=== PATIENT | male | born 1975 | race Hispanic/Latino ===

== ENCOUNTER 2017-09-06 21:43 | Emergency (ER) | payer SELFPAY ==
[2017-09-06 22:39] LABS: RAPID GROUP A STREP NEGATIVE (NEGATIVE)
[2017-09-06] MEDS ORDERED: DiphenhydrAMINE HCL 50 MG/ML VIAL ONE (22:41)
[2017-09-06] MEDS ORDERED: ONDANSETRON HCL 4 MG/2 ML VIAL ONE (22:42)
[2017-09-06] MEDS ORDERED: KETOROLAC TROMETHAMINE 30MG/ML ONE (22:42)
[2017-09-06] MEDS ORDERED: SODIUM CHLORIDE 0.9% 1000ML 1,000 ML IV ONE (22:42)
== END 2017-09-06 23:40 | disposition home or self-care (01) ==
LOC: EDH 21:43
DX: N39.0 Urinary tract infection, site not specified (principal); R11.2 Nausea with vomiting, unspecified; Z72.0 Tobacco use
CPT/HCPCS: 87804 ×2; 87880; 96361; 96374; 96375; 99284; J1200; J1885; J2405; J7030